=== PATIENT | female | born 1950 | race Caucasian/White ===

== ENCOUNTER 2019-07-21 01:27 | Inpatient (IN) | payer OTHER ==
[~2019-07-21] VITALS: Ht 157.5 cm; Wt 65.5 kg
[~2019-07-21 01:27] MED LIST: NOHOMEMEDICATIONS; NORCO 5-325 TA1 EACH PO; XANAX 0.5 MG0.5 MG PO
[2019-07-21 01:29] VITALS: BP 159/83
[2019-07-21 01:56] LABS: ABSOLUTE BASOPHILS 0.1 thou/uL (0.0-0.2); ABSOLUTE EOSINOPHILS 0.3 thou/uL (0.0-0.7); ABSOLUTE LYMPHOCYTES 2.4 thou/uL (0.8-5.3); ABSOLUTE MONOCYTES 0.6 thou/uL (0.0-1.2); ABSOLUTE NEUTROPHILS 2.7 thou/uL (1.6-8.1); BASOPHILS 1.2 %; EOSINOPHILS 5.5 %; HEMATOCRIT 42.3 % (37.0-47.0); HEMOGLOBIN 14.5 gm/dL (12.0-15.0); LYMPHOCYTES 39.1 %; MCH 32.5 pg (26.0-34.0); MCHC 34.3 g/dL (28.0-37.0); MCV 94.9 fL (80.0-100.0); MONOCYTES 10.1 %; MPV 10.7 fl. (7.2-11.1); NUCLEATED RBCS 0 /100WBC; PLATELET COUNT* 157 thou/uL (150-400); POLYS 44.1 %; RBC 4.46 mil/uL (4.20-5.00); RDW-CV 14.1 % (10.5-14.5); WBC 6.1 thou/uL (4.0-11.0)
[2019-07-21 02:27] LABS: CALCIUM 9.9 mg/dL (8.5-10.1); POTASSIUM 4.5 mmol/L (3.5-5.1)
[2019-07-21 02:38] LABS: ALBUMIN 3.6 g/dL (3.4-5.0); TOTAL BILIRUBIN 0.3 mg/dL (<0.1-1.0); TOTAL PROTEIN 6.9 g/dL (6.4-8.2)
[2019-07-21 02:53] LABS: URINE BILIRUBIN NEGATIVE (Negative); URINE BLOOD NEGATIVE (Negative); URINE CLARITY CLEAR; URINE COLOR YELLOW; URINE GLUCOSE-RANDOM NEGATIVE (Negative); URINE KETONES NEGATIVE (Negative); URINE LEUKOCYTES-REFLEX NEGATIVE (Negative); URINE NITRITE-REFLEX NEGATIVE (Negative); URINE PROTEIN NEGATIVE (Negative); URINE UROBILINOGEN 0.2 E.U./dl (0.2-1.0)
[2019-07-21 02:55] LABS: INFLUENZA A ANTIGEN Negative (Negative); INFLUENZA B ANTIGEN Negative (Negative)
[2019-07-21 04:31] VITALS: BP 140/87
[2019-07-21 05:00] VITALS: BP 148/86
[2019-07-21 08:00] VITALS: BP 186/82
[2019-07-21] MEDS ORDERED: INDERAL 20 MG T20 M1 PO (08:57)
[2019-07-21] MEDS ORDERED: XANAX1 MG PO (08:58)
[2019-07-21] MEDS ORDERED: BACLOFEN 10MG T10 MG PO (08:58)
[2019-07-21] MEDS ORDERED: CARBIDOPA-LEVO1 EAC9 PO (09:47)
[2019-07-21] MEDS ORDERED: VENTOLIN HFA INH8 GM INH (09:47)
[2019-07-21] MEDS ORDERED: REQUIP XL4 MG PO (09:47)
[2019-07-21] MEDS ORDERED: ALBUTEROL0.63 MG/3 INH (09:50)
[2019-07-21 16:00] VITALS: BP 142/93
[2019-07-21 21:48] VITALS: BP 128/74
[2019-07-22] VITALS: BP 131/65
[2019-07-22 04:00] VITALS: BP 167/92
[2019-07-22 08:00] VITALS: BP 159/86
--- NOTE | 2019-07-22 08:40 | EKG ---
[place] [address] ELECTROCARDIOGRAM REPORT Name: MAX PERDOMO Room: [address] ADM IN .R.#: [id number] Admission: 07/21/19 Attend Phys: Zeus Leon MD Discharge: Date of : 46 Report #: [id number] THIS REPORT FOR: //name// [facility] ED Test Date: 2019-07-21 Test Time: 01:35:26 Pat Name: MAX PERDOMO Department: Room: [facility] Gender: F Cutting Department Supervisor: : 1950 Requested By: Bria Rothman Order Number: [id number] MD: Jevon Olivera Measurements Intervals [place] Rate: 70 P: 66 CA: 156 QRS: -4 QRSD: 171 T: 36 QT: 399 QTc: 431 Interpretive Statements Sinus rhythm Anteroseptal infarct age indeterminate, possible Nonspecific intraventricular conduction delay Artifact in lead(s) I,II,III,aVR,aVL,aVF,V1,V2,V4,V5 No previous ECG available for comparison Electronically Signed On 07-22-2019 8:40:44 CDT by Jevon Olivera [email or web address] <ELECTRONICALLY SIGNED> By: Jevon Olivera MD, FACC 07/22/19 0840 4 4 Jveon Olivera MD, FAC /EPI
[2019-07-22 11:51] VITALS: BP 143/71
[2019-07-22 15:47] VITALS: BP 153/87
[2019-07-22 20:00] VITALS: BP 169/96
[2019-07-23] VITALS (7 sets, daily range): BP systolic 99–146; BP diastolic 59–86
--- NOTE | 2019-07-23 12:47 | CON ---
[address] [address] CONSULTATION Name: MAX PERDOMO Room: [address] ADM IN M.R.#: [id number] Admission: 07/21/19 Attend Phys: Zeus Leon MD Discharge: Date of : 46 Report #: [id number] THIS REPORT FOR: //name// CC: Ketty Leon MD DATE OF SERVICE: 07/22/2019 PULMONARY CONSULTATION REASON FOR CONSULTATION: Hypoxic respiratory failure, COPD and lung nodule. PHYSICIAN REQUESTING CONSULTATION: Zeus Leon MD HISTORY OF PRESENT ILLNESS: The patient is a 68-year-old female with past medical history that is significant for COPD, anxiety, parkinsonism and history of GERD. The patient presented to the Emergency Department with a history of 3 days of dyspnea. This has been associated with coughing. Her sputum is clear. The patient is maintained on albuterol inhaler and DuoNeb, which she took twice before coming without significant improvement in her symptoms. The patient has a history of presenting to her primary care physician and was treated for what appeared to be acute bronchitis/pneumonia as an outpatient one month ago. Her symptoms improved with steroids and antibiotics as an outpatient. She became better; however, she became worse during this week. The patient has a history of smoking up to 3 packs per day for 56 years. She quit smoking 4 months ago. The patient denies any fevers, but reported chills. She denies any sick contacts or recent travels. She was found to be mildly hypoxemic in the Emergency Department, but her oxygenation improved during the hospitalization. The patient underwent this chest x-ray that showed possibility of lung nodule on the right side. The patient denies any history of cancer and no history of lung nodules in the past. PAST MEDICAL HISTORY: Positive for COPD, anxiety, ex-tobacco dependence, [place] [address] CONSULTATION Name: MAX PERDOMO Room: [address] IN [facility]#: [id number] Admission: 07/21/19 Attend Phys: Zeus Leon MD Discharge: Date of : 46 Report #: [id number] parkinsonism, GERD and anxiety. PAST SURGICAL HISTORY: History of rhinoplasty and partial thyroidectomy. SOCIAL HISTORY: The patient has a history of smoking up to 3 packs per day for 56 years. She quit smoking approximately 4 months ago. She denies alcohol or illicit drug use. FAMILY HISTORY: Positive for liver cancer in her father and breast cancer in her sister. REVIEW OF SYSTEMS: Positive as described above. Remaining 10-point review of systems was otherwise unremarkable. PHYSICAL EXAMINATION: VITAL SIGNS: The patient had the following vital signs; temperature 36.9, heart rate 72, respiratory rate 16, blood pressure 159/86 and saturations 94% on room air. GENERAL: Showed an ill lady who is not in apparent distress who is elderly, alert and oriented x 3. HEENT: Showed atraumatic head. Neck is supple. Pupils are round, reactive to light and accommodation. No JVD, thyromegaly or cervical lymphadenopathy. No carotid bruit. CARDIOVASCULAR: Regular rate and rhythm. No gallop. CHEST: Examination showed decreased air entry with prolonged expiratory phase. No crackles. ABDOMEN: Soft, lax, nontender. EXTREMITIES: Lower limb examination showed trace edema of both lower limbs with no clubbing, cyanosis or deformity. LABORATORY DATA: Her labs were as follows: CBC showed WBC count of 6.1, hemoglobin 14.5 and platelets of 157. Creatinine of 1.0. Troponin is 0.06. BNP was 136. Electrolytes are within normal limits. Her influenza A and influenza B by screening were negative. Her chest x-rays on admission showed possible nodule over the right posterior fifth rib, but otherwise no pneumothorax or lung masses or consolidation were seen. ASSESSMENT: 1. Acute hypoxic respiratory failure -- improved. 2. Acute exacerbation of chronic obstructive pulmonary disease. 3. Probable lung nodule. 4. Ex-smoker. 5. Chronic [place] [address] CONSULTATION Name: MAX PERDOMO Room: [address] IN [facility].#: [id number] Admission: 07/21/19 Attend Phys: Zeus Leon MD Discharge: Date of : 46 Report #: [id number] PLAN: 1. The patient appears to have acute exacerbation of COPD that improved with antibiotics and steroids. I will continue scheduled bronchodilators and start on steroid taper. 2. For her probable lung nodule, we will proceed with chest CT without contrast. 3. No suspicion for pulmonary embolism and her D-dimer is within normal limits. We will follow up according to the CT scan results. 4. Of note, the patient reports that she has been maintained on Lasix in the past for what appeared to be a valvular heart disease. I discussed the case with the patient and her daughter. All their questions were answered. Discussed with RN at the bedside. Thank you for giving us the opportunity to participate in the management of this patient. <ELECTRONICALLY SIGNED> By: Remy Pandey MD 07/23/19 1247 1043 [id number] Stefanie Pandey MD /nt
[2019-07-23] MEDS ORDERED: LEVAQUIN 750 M750 MG PO (13:13)
[2019-07-23] MEDS ORDERED: PREDNISONE 10 M10 MG PO (13:13)
== END 2019-07-23 18:10 | disposition home health service (06) | DRG 189 ==
LOC: M.ERS 01:27 → M.2W 03:44 → M.TBA-ER 03:44 → M.2W 04:24
PROVIDERS: Emergency Medicine; ADMIT Internal Medicine
DX: J96.01 Acute respiratory failure with hypoxia (principal); J44.1 Chronic obstructive pulmonary disease with (acute) exacerbation; J44.0 Chronic obstructive pulmonary disease with (acute) lower respiratory infection; J20.9 Acute bronchitis, unspecified; F41.9 Anxiety disorder, unspecified; G20 Parkinson's disease; I10 Essential (primary) hypertension; K21.9 Gastro-esophageal reflux disease without esophagitis; R91.1 Solitary pulmonary nodule; Z23 Encounter for immunization; Z80.8 Family history of malignant neoplasm of other organs or systems; Z79.899 Other long term (current) drug therapy; Z80.3 Family history of malignant neoplasm of breast; Z87.891 Personal history of nicotine dependence

== ENCOUNTER 2021-06-18 09:55 | Inpatient (IN) | payer OTHER ==
[~2021-06-18] VITALS: Ht 157.5 cm; Wt 54.4 kg
[~2021-06-18 09:55] MED LIST changes: +ALBUTEROL0.63 MG/3 INH; +BACLOFEN 10MG T10 MG PO; +CARBIDOPA-LEVO1 EAC9 PO; +INDERAL 20 MG T20 M1 PO; +LEVAQUIN 750 M750 MG PO; +PREDNISONE 10 M10 MG PO; +REQUIP XL4 MG PO; +VENTOLIN HFA INH8 GM INH; +XANAX1 MG PO
[2021-06-18 10:00] VITALS: BP 178/90
[2021-06-18] MEDS ORDERED: LASIX 40 MG TAB40 MG PO (10:07)
[2021-06-18 10:22] LABS: ABSOLUTE BASOPHILS 0.1 thou/uL (0.0-0.2); ABSOLUTE EOSINOPHILS 0.1 thou/uL (0.0-0.7); ABSOLUTE LYMPHOCYTES 0.7 thou/uL (0.8-5.3); ABSOLUTE MONOCYTES 0.6 thou/uL (0.0-1.2); ABSOLUTE NEUTROPHILS 6.8 thou/uL (1.6-8.1); BASOPHILS 0.9 %; EOSINOPHILS 1.7 %; HEMATOCRIT 35.1 % (37.0-47.0); HEMOGLOBIN 12.2 gm/dL (12.0-15.0); LYMPHOCYTES 8.8 %; MCH 30.4 pg (26.0-34.0); MCHC 34.6 g/dL (28.0-37.0); MCV 87.8 fL (80.0-100.0); MONOCYTES 7.5 %; MPV 9.5 fl. (7.2-11.1); NUCLEATED RBCS 0 /100WBC; PLATELET COUNT* 183 thou/uL (150-400); POLYS 81.1 %; WBC 8.3 thou/uL (4.0-11.0)
[2021-06-18 10:39] LABS: CALCIUM 8.8 mg/dL (8.5-10.1); CREATININE 0.8 mg/dL (0.6-1.3); POTASSIUM 3.6 mmol/L (3.5-5.1)
[2021-06-18 10:50] LABS: ALBUMIN 3.2 g/dL (3.4-5.0); MAGNESIUM 1.7 mg/dL (1.8-2.4); TOTAL BILIRUBIN 0.5 mg/dL (<0.1-1.0); TOTAL PROTEIN 7.2 g/dL (6.4-8.2)
[2021-06-18 12:16] LABS: URINE BILIRUBIN NEGATIVE (Negative); URINE BLOOD TRACE (Negative); URINE CLARITY CLEAR; URINE COLOR YELLOW; URINE GLUCOSE-RANDOM NEGATIVE (Negative); URINE KETONES 2+ (Negative); URINE LEUKOCYTES-REFLEX NEGATIVE (Negative); URINE NITRITE-REFLEX NEGATIVE (Negative); URINE PROTEIN 2+ (Negative); URINE UROBILINOGEN 0.2 E.U./dl (0.2-1.0)
[2021-06-18 12:50] LABS: HYALINE CASTS 0-3 Few /LPF (None Seen); MUCUS 0-3 Light strn/LPF (None Seen); SQUAMOUS >10 Many /LPF (0-3)
[2021-06-18 12:51] LABS: BACTERIA-REFLEX 1-9 Few /HPF (None Seen); CRYSTALS None Seen /LPF (None Seen); URINE RBC 0-2 Rare /HPF (0-2); URINE WBC-REFLEX 0-5 Rare /HPF (0-5)
[2021-06-18 12:52] VITALS: BP 141/70
[2021-06-18 16:00] VITALS: BP 133/55
[2021-06-18] MEDS ORDERED: XANAX 0.25 MG0.25 MG PO (16:48)
[2021-06-18] MEDS ORDERED: PROTONIX40 M3 PO (16:52)
[2021-06-18] MEDS ORDERED: ADVAIR 250-501 EACH INH (16:56)
[2021-06-18 20:00] VITALS: BP 108/90
[2021-06-19 00:30] VITALS: BP 106/58
[2021-06-19 04:16] VITALS: BP 126/61
[2021-06-19 04:40] LABS: HEMATOCRIT 35.3 % (37.0-47.0); HEMOGLOBIN 11.9 gm/dL (12.0-15.0); MCH 29.7 pg (26.0-34.0); MCHC 33.6 g/dL (28.0-37.0); MCV 88.3 fL (80.0-100.0); MPV 10.4 fl. (7.2-11.1); RBC 3.99 mil/uL (4.20-5.00); WBC 4.8 thou/uL (4.0-11.0)
[2021-06-19 04:53] LABS: CALCIUM 8.8 mg/dL (8.5-10.1); POTASSIUM 3.2 mmol/L (3.5-5.1)
--- NOTE | 2021-06-19 05:01 | NUR ---
PT SLEPT MOST OF SHIFT. ASSESSMENT DOCUMENTED. MEDS GIVEN PER E-NOV. IV PATENT. NO REPORTS OF PAIN. PT HAD EPISODE OF INCREASE SOA, O2 INCREASED FROM 2L NC TO 4L NC, PRN BREATHING TREATMENT GIVEN BY RT. PT STATES BREATHING IS BETTER. FALL PRECAUTIONS IN PLACE. PT ABLE TO MAKE NEEDS KNOWN. WILL CONTINUE WITH PLAN OF CARE.
[2021-06-19 08:00] VITALS: BP 117/58
[2021-06-19 08:17] LABS: PHOSPHORUS* 4.2 mg/dL (2.5-4.9)
[2021-06-19 16:00] VITALS: BP 91/50
[2021-06-19 20:00] VITALS: BP 115/64
[2021-06-20] VITALS (7 sets, daily range): BP systolic 101–168; BP diastolic 44–84
--- NOTE | 2021-06-20 02:05 | NUR ---
PT ALERT ORIENTED. PT ANXIOUS. DIPHENHYDRAMINE GIVEN HS WITH MELATONIN. SURETY BOND AGENT TRACING SB/SR. O2 AT 4 LITERS NC. O2 AT 4 LITERS NC. TURN Q 2 HRS.
[2021-06-20 03:52] LABS: HEMATOCRIT 37.6 % (37.0-47.0); HEMOGLOBIN 12.2 gm/dL (12.0-15.0); MCH 29.2 pg (26.0-34.0); MCHC 32.4 g/dL (28.0-37.0); MCV 90.1 fL (80.0-100.0); MPV 9.5 fl. (7.2-11.1); RBC 4.18 mil/uL (4.20-5.00); RDW-CV 14.1 % (10.5-14.5); WBC 7.8 thou/uL (4.0-11.0)
[2021-06-20 04:37] LABS: CALCIUM 8.7 mg/dL (8.5-10.1); CREATININE 1.2 mg/dL (0.6-1.3); POTASSIUM 4.1 mmol/L (3.5-5.1)
--- NOTE | 2021-06-20 11:36 | EKG ---
[place] [address] ELECTROCARDIOGRAM REPORT Name: MAX PERDOMO Room: [address] ADM IN M.R.#: [id number] Admission: 06/18/21 Attend Phys: Joshua Ashley Discharge: Date of : 46 Date of Service: 06/18/21 1000 Report #: [id number] THIS REPORT FOR: //name// [facility] ED Test Date: 2021-06-18 Test Time: 10:00:32 Pat Name: MAX PERDOMO Department: Room: [facility] Gender: F Double Bottom Driver: VIKAS : 1950 Requested By: Balbir Porter Order Number: [id number] MD: Nikita Locke Measurements Intervals [place] Rate: 90 P: 56 FL: 162 QRS: 11 QRSD: 83 T: 28 QT: 352 QTc: 431 Interpretive Statements Sinus rhythm Atrial premature complex Consider biatrial enlargement Compared to ECG 07/21/2019 01:35:26 Atrial premature complex(es) now present Myocardial infarct finding no longer present Intraventricular conduction delay no longer present Electronically Signed On 06-20-2021 11:35:56 CDT by Nikita Locke [email or web address] <ELECTRONICALLY SIGNED> By: Nikita Locke MD, FAC 06/20/21 1135 1000 1000 Nikita Locke MD, FAC /EPI
--- NOTE | 2021-06-20 13:25 | NUR ---
CM ASSESSMENT: PT A&O, AND NORMALLY INDEPENDENT WITH ADL'S. PT RESIDES AT HOME ALONE, BUT INFORMS THAT HER DTR ASSIST WITH TRANSPORTATION NEEDED. PT USES 0 DME. PT HAS 0 HX OF HH OR SNF. PT CURRENTLY ON 4L O2, BUT INFORMS THAT SHE DID NOT HAVE HOME OXYGEN PRIOR TO ADMIT. CM WILL REMAIN AVAILABLE TO ASSIST AND FOLLOW NEEDED.
--- NOTE | 2021-06-20 17:38 | 2DMMODE ---
[place] [address] 2 D/M-MODE ECHOCARDIOGRAM Name: MAX PERDOMO Room: [address] ADM IN [facility]#: [id number] Admission: 06/18/21 Attend Phys: Joshua Ashley Discharge: Date of : 46 Date of Service: 06/20/21 1738 Report #: [id number] THIS REPORT FOR: cc: Ketty Royal Angela Jo RNP Holkins,Nikita Fallon MD [facility] ~ APPROVED REPORT Study performed: 06/20/2021 15:35:52 EXAM: Comprehensive 2D, Doppler, and color-flow Echocardiogram Patient Location: In-Patient Room #: [facility] Status: routine BSA: 1.78 HR: 71 bpm BP: 151/68 mmHg Rhythm: NSR Other Information Study Quality: Good Indications ELEVATED BNP 2D Dimensions IVSd: 11.09 (7-11mm) LVOT Diam: 19.19 (18-24mm) LVDd: 38.92 mm PWd: 8.98 (7-11mm) Ascending Ao: 30.42 (22-36mm) LVDs: 22.03 (25-40mm) Aortic Root: 29.58 mm Volumes Left Atrial Volume (Systole) LA ESV Index: 30.20 mL/m2 Aortic Valve AoV Peak Abhi.: 3.98 m/s AO Peak Gr.: 63.50 mmHg LVOT Max P.61 mmHg AO Mean Gr.: 38.21 mmHg LVOT Mean P.18 mmHg LVOT Max V: 1.55 m/s AO V2 VTI: 71.50 cm LVOT Mean V: 0.92 m/s MADELEINE (VTI): 1.16 cm2 LVOT V1 VTI: 28.64 [place] [address] 2 D/M-MODE ECHOCARDIOGRAM Name: MAX PERDOMO Room: [address] IN ..#: [id number] Admission: 06/18/21 Attend Phys: Joshua Ashley Discharge: Date of : 46 Date of Service: 06/20/21 1738 Report #: [id number] Mitral Valve E/A Ratio: 1.24 MV Decel. Time: 194.76 ms MV E Max Abhi.: 0.88 m/s MV PHT: 56.48 ms MVA (PHT): 3.90 cm2 TDI E/Lateral E': 7.33 E/Medial E': 8.80 Medial E' Abhi.: 0.10 m/s Lateral E' Abhi.: 0.12 m/s Pulmonary Valve PV Peak Abhi.: 1.08 m/s PV Peak Gr.: 4.68 mmHg Tricuspid Valve RAP Estimate: 5.00 mmHg TR Peak Gr.: 27.11 mmHg RVSP: 32.00 mmHg PA Pressure: 32.00 mmHg Left Ventricle The left ventricle is normal size. There is normal LV segmental wall motion. There is normal left ventricular wall thickness. Left ventricular systolic function is normal. The left ventricular ejection fraction is within the normal range. LVEF is 60%. The left ventricular diastolic function is normal. Right Ventricle The right ventricle is normal size. The right ventricular systolic function is normal. Atria Left atrium is mildly dilated. The right atrium size is normal. Aortic Valve Moderate aortic valve sclerosis. Trace aortic regurgitation. Moderate to severe aortic stenosis. Mitral Valve There is mitral annular calcification. Trace mitral regurgitation. No evidence of mitral valve stenosis. Tricuspid Valve The tricuspid valve is normal in structure. Trace tricuspid regurgitation. Mild [place] [address] 2 D/M-MODE ECHOCARDIOGRAM Name: MAX PERDOMO Room: [address] IN [facility]#: [id number] Admission: 06/18/21 Attend Phys: Joshua Ashley Discharge: Date of : 46 Date of Service: 06/20/21 1738 Report #: [id number] Pulmonic Valve The pulmonary valve is normal in structure. There is no pulmonic valvular regurgitation. Great Vessels The aortic root is normal in size. IVC is normal in size and collapses >50% with inspiration. Pericardium There is no pericardial effusion. <Conclusion> The left ventricle is normal size. There is normal left ventricular wall thickness. Left ventricular systolic function is normal. The left ventricular ejection fraction is within the normal range. LVEF is 60%. The right ventricle is normal size. Left atrium is mildly dilated. Moderate aortic valve sclerosis. Trace aortic regurgitation. Moderate to severe aortic stenosis. There is mitral annular calcification. Trace mitral regurgitation. No evidence of mitral valve stenosis. The tricuspid valve is normal in structure. IVC is normal in size and collapses >50% with inspiration. There is no pericardial effusion. There is normal LV segmental wall motion. <ELECTRONICALLY SIGNED> By: Nikita Locke MD, FACC 06/20/21 1738 1738 173 Nikita Locke MD, FACC /INF
--- NOTE | 2021-06-21 02:35 | NUR ---
PT ALERT ORIENTED. UP TO BSC WITH ONE PERSON ASSIST. CLINICAL SUPERVISOR TRACING SR. BENADRYL AND MELATONIN GIVEN HS FOR ANXIETY AND SLEEP. O2 ON AT 4 LITERS NC.
[2021-06-21 04:12] VITALS: BP 140/66
[2021-06-21 04:24] LABS: HEMATOCRIT 36.7 % (37.0-47.0); HEMOGLOBIN 12.1 gm/dL (12.0-15.0); MCH 29.3 pg (26.0-34.0); MCV 88.8 fL (80.0-100.0); MPV 9.5 fl. (7.2-11.1); RBC 4.13 mil/uL (4.20-5.00); RDW-CV 13.9 % (10.5-14.5); WBC 5.9 thou/uL (4.0-11.0)
[2021-06-21 04:35] LABS: CALCIUM 8.9 mg/dL (8.5-10.1); CREATININE 0.9 mg/dL (0.6-1.3); POTASSIUM 4.2 mmol/L (3.5-5.1)
[2021-06-21 08:00] VITALS: BP 120/76
--- NOTE | 2021-06-21 13:25 | NUR ---
PLAN OF CARE: PHYSICIAN INFORMS THAT PT MAY BE READY TO D/C IN 24-48 HRS. PT MAY JIMENA HOME OXYGEN AT D/C SHE REMAINS ON 3L-4L O2 AND DID NOT HAVE HOME OXYGEN PRIOR TO ADMIT. PT MAY ALSO BENEFIT FROM HH AT D/C. CM WILL REMAIN AVAILABLE TO ASSIST AND FOLLOW NEEDED.
[2021-06-21 16:00] VITALS: BP 123/57
[2021-06-21 19:30] VITALS: BP 129/65
[2021-06-22 00:26] VITALS: BP 155/84
[2021-06-22 04:19] VITALS: BP 138/80
[2021-06-22 05:13] LABS: ALBUMIN 2.7 g/dL (3.4-5.0); CALCIUM 9.1 mg/dL (8.5-10.1); CREATININE 0.9 mg/dL (0.6-1.3); TOTAL BILIRUBIN 0.2 mg/dL (<0.1-1.0); TOTAL PROTEIN 7.2 g/dL (6.4-8.2)
[2021-06-22 06:26] LABS: ABSOLUTE LYMPHOCYTES 0.7 thou/uL (0.8-5.3); ABSOLUTE MONOCYTES 0.2 thou/uL (0.0-1.2); ABSOLUTE NEUTROPHILS 2.8 thou/uL (1.6-8.1); BASOPHILS 0.3 %; HEMATOCRIT 39.6 % (37.0-47.0); HEMOGLOBIN 13.2 gm/dL (12.0-15.0); LYMPHOCYTES 19.5 %; MCH 29.6 pg (26.0-34.0); MCHC 33.4 g/dL (28.0-37.0); MCV 88.7 fL (80.0-100.0); MONOCYTES 4.2 %; MPV 9.6 fl. (7.2-11.1); NUCLEATED RBCS 0 /100WBC; PLATELET COUNT* 224 thou/uL (150-400); RBC 4.47 mil/uL (4.20-5.00); RDW-CV 14.1 % (10.5-14.5); WBC 3.6 thou/uL (4.0-11.0)
[2021-06-22 07:25] VITALS: BP 116/67
[2021-06-22 11:02] VITALS: BP 116/67
[2021-06-22 12:00] VITALS: BP 116/68
[2021-06-22] MEDS ORDERED: PROTONIX40 M2 PO (13:14)
[2021-06-22] MEDS ORDERED: DOXYCYCLINE 10100 MG PO (13:14)
[2021-06-22] MEDS ORDERED: PREDNISONE 10 M10 MG PO (13:14)
[2021-06-22 14:21] VITALS: BP 116/67
--- NOTE | 2021-06-22 14:23 | NUR ---
CM SPK WITH JOSY, DENTAL APPLIANCE MECHANIC FOR [facility]. JOSY INDICATED THEY ARE ACCEPTING OF PT. PT'S BEDSIDE RN, BEBA, PROVIDED CM WITH VERBAL CONFIRMATION THAT RT COMPLETED REST AND EXERCISE OX AND PT DOES NOT NEED 02.
--- NOTE | 2021-06-22 15:36 | NUR ---
PT GIVEN DISCHARGE INFORMATION, CARE NOTES, AND PRESCRIPTIONS SENT TO PHARMACY. IV REMOVED. PT BLEONGINGS GATHERED. PT LEFT HOME WITH HOME HEALTH.
== END 2021-06-22 15:46 | disposition home health service (06) | DRG 177 ==
LOC: M.ERS 09:55 → M.2W 11:22 → M.TBA-ER 11:22 → M.2W 13:25
PROVIDERS: Emergency Medicine Emergency Medical Services; Family Medicine; Internal Medicine; ADMIT Internal Medicine; ATTEND Internal Medicine
PROC: 5A0935A Assistance with Respiratory Ventilation, Less than 24 Consecutive Hours, High Flow/Velocity Cannula (ICD-10-PCS; principal; 2021-06-19)
DX: J15.6 Pneumonia due to other Gram-negative bacteria (principal); J96.01 Acute respiratory failure with hypoxia; J44.0 Chronic obstructive pulmonary disease with (acute) lower respiratory infection; E89.0 Postprocedural hypothyroidism; Z20.822 Contact with and (suspected) exposure to COVID-19; F41.9 Anxiety disorder, unspecified; G20 Parkinson's disease; I35.0 Nonrheumatic aortic (valve) stenosis; Z79.899 Other long term (current) drug therapy; K21.9 Gastro-esophageal reflux disease without esophagitis; I10 Essential (primary) hypertension

== ENCOUNTER → 2021-08-04 | Outpatient (CLI) | payer OTHER ==
[~2021-08-04] MED LIST changes: +ADVAIR 250-501 EACH INH; +DOXYCYCLINE 10100 MG PO; +LASIX 40 MG TAB40 MG PO; +PROTONIX40 M2 PO; +PROTONIX40 M3 PO; +XANAX 0.25 MG0.25 MG PO
== END ==
LOC: M.RAD 16:19
PROVIDERS: ATTEND Internal Medicine Critical Care Medicine
DX: R91.8 Other nonspecific abnormal finding of lung field (principal); R60.0 Localized edema

== ENCOUNTER → 2021-09-15 | Outpatient (CLI) | payer OTHER | LOC: M.PUL 09-01 13:30 | PROVIDERS: ATTEND Internal Medicine Critical Care Medicine | DX: J44.9 Chronic obstructive pulmonary disease, unspecified (principal) ==